=== PATIENT | female | born 1995 | race Caucasian/White ===

== ENCOUNTER 2020-05-28 17:39 | Emergency (ER) | payer SELFPAY ==
[~2020-05-28] VITALS: Ht 165.1 cm; Wt 102.3 kg
[2020-05-28 17:55] VITALS: TEMP 98.8
[2020-05-28 19:16] VITALS: BP 133/76; PULSE 101
== END 2020-05-28 19:17 | disposition home or self-care (01) ==
LOC: COL.ER 17:39
DX: S20.219A Contusion of unspecified front wall of thorax, initial encounter (principal); J45.909 Unspecified asthma, uncomplicated; Z32.02 Encounter for pregnancy test, result negative; V49.40XA Driver injured in collision with unspecified motor vehicles in traffic accident, initial encounter; W22.11XA Striking against or struck by driver side automobile airbag, initial encounter
CPT/HCPCS: J1885